=== PATIENT | female | born 1990 | race Caucasian/White ===

== ENCOUNTER 2016-11-24 22:57 | Inpatient (IN) | payer OTHER ==
[~2016-11-24] VITALS: Ht 162.6 cm; Wt 75.0 kg
[~2016-11-24 22:57] MED LIST: DEPO-PROVER150 MG/ML IM; DOCUSATE SODIU100 MG PO; IBUPROFEN800 MG PO; METHADONE1 MG/1 ML PO; METHADOSE10 MG/1 ML PO; PHENTERMINE HCL30 MG PO; PRENATAL TABLE1 EAC3 PO; ZOFRAN4 MG PO
[2016-11-24 23:33] VITALS: BP 122/81
[2016-11-25] VITALS (29 sets, daily range): BP systolic 94–138; BP diastolic 50–95
[2016-11-25 00:35] LABS: ADD MIUA? YES; BILIRUBIN SMALL; BLOOD MODERATE; COLOR AMBER ((YELLOW)); GLUCOSE (STRIP) NEGATIVE; KETONES 5; LEUKOCYTES NEGATIVE; NITRITE NEGATIVE; PROTEIN (STRIP) 100; SPECIFIC GRAVITY 1.029 (1.000-1.030)
[2016-11-25 00:50] LABS: AMPHETAMINE NEGATIVE (500 ng/mL); BARBITURATES NEGATIVE (200 ng/mL); BENZODIAZEPINES PRESUMPTIVE POSITIVE (150 ng/mL); COCAINE PRESUMPTIVE POSITIVE (150 ng/mL); INTERNAL CONTROLS VALID? YES; METHADONE NEGATIVE (200 ng/mL); METHAMPHETAMINE NEGATIVE (500 ng/mL); OPIATES (MORPHINE) NEGATIVE (100 ng/mL); OXYCODONE NEGATIVE (100 ng/mL); PHENCYCLIDINE NEGATIVE (25 ng/mL); PROPOXYPHENE NEGATIVE (300 ng/mL); THC CANNABINOIDS NEGATIVE (50 ng/mL); TRICYCLIC ANTIDEPRESSANTS NEGATIVE (300 ng/mL)
[2016-11-25 00:51] LABS: ADD MEDTOX COMMENT Y
[2016-11-25 01:29] LABS: BENZODIAZEPINES, URINE SCREEN POSITIVE (200 ng/mL)
[2016-11-25 01:49] LABS: EOSINOPHIL (%) 1.1 % (0-5); EOSINOPHIL COUNT 0.1 K/uL (0-0.3); HEMATOCRIT 36.1 % (36.0-46.0); IMMATURE GRANULOCYTE (%) 0.5 % (0.0-0.7); IMMATURE GRANULOCYTE COUNT 0.1 K/uL; INSTRUMENT ABS NEUTROPHIL CT 7.8 K/uL; LYMPHOCYTE COUNT 2.3 K/uL (1.0-2.8); MCHC 34.6 G/DL (30.0-36.0); MCV 89.6 FL (83-99); MEAN PLAT.VOLUME 10.1 uM^3 (9.5-12.4); MONOCYTE (%) 5.4 % (3-12); MONOCYTE COUNT 0.6 K/uL (0-0.8); NEUTROPHIL (%) 71.7 % (45-76); NEUTROPHIL COUNT 7.8 K/uL (1.8-6.4); PLATELET COUNT 189 K/uL (156-360); RBC DIS.WIDTH-CV 12.2 % (11.8-14.6); RBC DIS.WIDTH-SD 40.1 % (39-53); RED BLOOD COUNT 4.03 M/uL (3.80-5.20); WHITE BLOOD COUNT 10.9 K/uL (4.1-10.2)
[2016-11-25 01:55] LABS: PROTHROMBIN TIME 11.2 SEC (10.2-12.9)
[2016-11-25 01:58] LABS: PTT 25.7 SEC (25-37)
[2016-11-25 02:00] LABS: CHLORIDE 106 mEq/L (99-109); POTASSIUM 3.5 mEq/L (3.7-5.4); SODIUM 138 mEq/L (136-147)
[2016-11-25 02:02] LABS: GLUCOSE 92 mg/dL (70-99)
[2016-11-25 02:03] LABS: ANION GAP 12 MEQ/L (2-14)
[2016-11-25 02:04] LABS: TOTAL BILIRUBIN 0.5 mg/dL (0.0-1.0)
[2016-11-25 02:05] LABS: ALKALINE PHOSPHATASE 106 IU/L (3-129)
[2016-11-25 02:06] LABS: GFR ESTIMATE (CALCULATED) > 59 mL/min/
[2016-11-25 02:07] LABS: UREA NITROGEN (BUN) 7 mg/dL (9-23)
[2016-11-25 02:08] LABS: UR CREATININE CONCENTRATION 813.9 MG/DL
[2016-11-25 02:09] LABS: URIC ACID 4.3 mg/dL (3.1-9.2)
[2016-11-25 03:08] LABS: FIBRINOGEN 539 mg/dL (150-450)
[2016-11-25 04:17] LABS: LACTATE DEHYDROGENASE 269 IU/L (20-246)
[2016-11-25 06:09] LABS: WHITE BLOOD CELLS NONE SEEN /HPF (0-5)
[2016-11-25 06:10] LABS: BACTERIA 1+ /HPF; EPITHELIAL CELLS 3+ /HPF; MUCUS 2+ /LPF; UCUL ADDED? NO
[2016-11-25 07:33] LABS: Estimated Average Glucose 97 mg/dL (70-123)
[2016-11-25 20:13] LABS: EOSINOPHIL (%) 2.3 % (0-5); EOSINOPHIL COUNT 0.3 K/uL (0-0.3); HEMATOCRIT 35.1 % (36.0-46.0); IMMATURE GRANULOCYTE (%) 0.4 % (0.0-0.7); IMMATURE GRANULOCYTE COUNT 0.1 K/uL; INSTRUMENT ABS NEUTROPHIL CT 8.4 K/uL; LYMPHOCYTE COUNT 3.2 K/uL (1.0-2.8); MCH 31.6 PG (29.0-34.0); MCHC 33.9 G/DL (30.0-36.0); MCV 93.1 FL (83-99); MEAN PLAT.VOLUME 10.2 uM^3 (9.5-12.4); MONOCYTE (%) 9.3 % (3-12); MONOCYTE COUNT 1.2 K/uL (0-0.8); NEUTROPHIL (%) 63.5 % (45-76); NEUTROPHIL COUNT 8.4 K/uL (1.8-6.4); PLATELET COUNT 189 K/uL (156-360); RBC DIS.WIDTH-CV 12.4 % (11.8-14.6); RBC DIS.WIDTH-SD 42.7 % (39-53); RED BLOOD COUNT 3.77 M/uL (3.80-5.20); WHITE BLOOD COUNT 13.2 K/uL (4.1-10.2)
== END 2016-11-25 21:15 | disposition home or self-care (01) | DRG 774 ==
LOC: LDRP-OP → 2WEST 22:58 → LDRP-OP 02-20 11:47
PROVIDERS: Advanced Practice Midwife; Obstetrics & Gynecology
PROC: 3E0P7GC Introduction of Other Therapeutic Substance into Female Reproductive, Via Natural or Artificial Opening (ICD-10-PCS; principal; 2016-11-24)
PROC: 3E0S3CZ (ICD-10-PCS; 2016-11-25)
PROC: 00HU33Z Insertion of Infusion Device into Spinal Canal, Percutaneous Approach (ICD-10-PCS; 2016-11-25)
PROC: 10907ZC Drainage of Amniotic Fluid, Therapeutic from Products of Conception, Via Natural or Artificial Opening (ICD-10-PCS; 2016-11-25)
PROC: 10E0XZZ Delivery of Products of Conception, External Approach (ICD-10-PCS; 2016-11-25)
DX: O36.4XX0 Maternal care for intrauterine death, not applicable or unspecified (principal); O99.324 Drug use complicating childbirth; Z3A.32 32 weeks gestation of pregnancy; Z37.1 Single stillbirth; E66.3 Overweight; E66.9 Obesity, unspecified; Z68.29 Body mass index [BMI] 29.0-29.9, adult; O99.213 Obesity complicating pregnancy, third trimester; O99.334 Smoking (tobacco) complicating childbirth; F17.200 Nicotine dependence, unspecified, uncomplicated; O98.42 Viral hepatitis complicating childbirth; B18.2 Chronic viral hepatitis C; F11.20 Opioid dependence, uncomplicated; O99.344 Other mental disorders complicating childbirth; F32.9 Major depressive disorder, single episode, unspecified; F41.9 Anxiety disorder, unspecified; F14.90 Cocaine use, unspecified, uncomplicated
CPT/HCPCS: 76810; 80053; 81003; 82570; 83036; 83615; 84156; 84443; 84550; 84999; 85025; 85025 91; 85384; 85610; 85730; 88307; C1755; G0378; J0571; J3010; J7120

== ENCOUNTER 2017-08-16 21:05 | Emergency (ER) | payer OTHER ==
[~2017-08-16] VITALS: Ht 162.6 cm; Wt 80.0 kg
[2017-08-16 21:15] LABS: BASOPHIL (%) 0.4 % (0-1); BASOPHIL COUNT 0.1 K/uL (0-0.1); EOSINOPHIL (%) 0.8 % (0-5); EOSINOPHIL COUNT 0.1 K/uL (0-0.3); HEMATOCRIT 40.7 % (36.0-46.0); HEMOGLOBIN 13.7 G/DL (11.9-15.5); IMMATURE GRANULOCYTE (%) 0.2 % (0.0-0.7); LYMPHOCYTE (%) 37.6 % (15-42); LYMPHOCYTE COUNT 6.4 K/uL (1.0-2.8); MCH 31.2 PG (29.0-34.0); MCHC 33.7 G/DL (30.0-36.0); MCV 92.7 FL (83-99); MONOCYTE (%) 9.6 % (3-12); MONOCYTE COUNT 1.6 K/uL (0-0.8); NEUTROPHIL (%) 51.4 % (45-76); NEUTROPHIL COUNT 8.8 K/uL (1.8-6.4); PLATELET COUNT 300 K/uL (156-360); RBC DIS.WIDTH-CV 13.4 % (11.8-14.6); RBC DIS.WIDTH-SD 45.6 % (39-53); RED BLOOD COUNT 4.39 M/uL (3.80-5.20)
[2017-08-16 21:23] LABS: ALBUMIN 4.5 g/dL (3.2-4.8); CHLORIDE 108 mEq/L (99-109); POTASSIUM 3.3 mEq/L (3.7-5.4); SODIUM 140 mEq/L (136-147)
[2017-08-16 21:26] LABS: GLUCOSE 109 mg/dL (70-99); TOTAL PROTEIN 7.8 g/dL (6.4-8.3)
[2017-08-16 21:27] LABS: TOTAL BILIRUBIN 0.3 mg/dL (0.0-1.0)
[2017-08-16 21:28] LABS: SERUM ETHYL ALCOHOL < 10 mg/dL
[2017-08-16 21:29] LABS: ALKALINE PHOSPHATASE 58 IU/L (3-129); GFR ESTIMATE (CALCULATED) > 59 mL/min/
[2017-08-16 21:30] LABS: UREA NITROGEN (BUN) 17 mg/dL (9-23)
[2017-08-16 21:31] LABS: AST (GOT) 23 IU/L (2-34)
[2017-08-16 21:32] LABS: ALT (GPT) 36 IU/L (3-49)
[2017-08-16 21:37] LABS: APPEARANCE CLOUDY ((CLEAR)); BILIRUBIN NEGATIVE; BLOOD NEGATIVE; COLOR YELLOW ((YELLOW)); GLUCOSE (STRIP) NEGATIVE; KETONES 5; LEUKOCYTES NEGATIVE; NITRITE NEGATIVE; PROTEIN (STRIP) >=500; SPECIFIC GRAVITY 1.038 (1.000-1.030)
[2017-08-16 21:38] LABS: QUANTITATIVE HCG < 4.0 MIU/ML
[2017-08-16 21:48] LABS: BACTERIA RARE /HPF; EPITHELIAL CELLS 2+ /HPF; MUCUS TRACE /LPF; UCUL ADDED? YES
[2017-08-16 21:55] LABS: AMPHETAMINE NEGATIVE (500 ng/mL); BARBITURATES NEGATIVE (200 ng/mL); BENZODIAZEPINES PRESUMPTIVE POSITIVE (150 ng/mL); BUPRENORPHINE NEGATIVE (10 ng/mL); COCAINE NEGATIVE (150 ng/mL); METHADONE NEGATIVE (200 ng/mL); METHAMPHETAMINE PRESUMPTIVE POSITIVE (500 ng/mL); OPIATES (MORPHINE) NEGATIVE (100 ng/mL); OXYCODONE PRESUMPTIVE POSITIVE (100 ng/mL); PHENCYCLIDINE NEGATIVE (25 ng/mL); PROPOXYPHENE NEGATIVE (300 ng/mL); THC CANNABINOIDS NEGATIVE (50 ng/mL); TRICYCLIC ANTIDEPRESSANTS NEGATIVE (300 ng/mL)
[2017-08-16] MEDS ORDERED: NARCAN4 MG NS (22:15)
[2017-08-16 22:29] LABS: BENZODIAZEPINES, URINE SCREEN POSITIVE (200 ng/mL)
[2017-08-16 22:57] VITALS: BP 142/83
== END 2017-08-16 23:07 | disposition left against medical advice (07) ==
LOC: EME 21:05
PROVIDERS: Emergency Medicine
DX: T40.601A Poisoning by unspecified narcotics, accidental (unintentional), initial encounter (principal); F41.9 Anxiety disorder, unspecified; F17.200 Nicotine dependence, unspecified, uncomplicated; Z88.2 Allergy status to sulfonamides; Z88.8 Allergy status to other drugs, medicaments and biological substances
CPT/HCPCS: 80053; 81003; 84702; 84999; 85025; 87086; 99281; 99285; G0480